=== PATIENT | female | born 1945 | race Caucasian/White ===

== ENCOUNTER 2016-10-15 21:09 | Emergency (ER) | payer OTHER ==
[2016-10-15 21:19] VITALS: RESP 16; TEMP 98.8; O2SAT 94
--- NOTE | 2016-10-15 21:56 | EDPHY ---
H & P Time Seen by Provider: 10/15/16 21:29 HPI/ROS: This patient was stepping backward at her daughter's home this evening when she caught her heel and hand mechanical fall onto outstretched left hand with wrist injury at 8:00 p.m.. She reports moderate pain to the region of the distal radius and took 1 Aleve prior to arrival with partial relief down to 2/3 ache at baseline slightly worse with movement of her wrist. No other exacerbating factors and she denies any other associated injuries except for mild pain at the coccyx. She relates that she had antecedent pain at the coccyx from fall while roller skating 2 weeks ago that had nearly resolved was at minimal discomfort is now back to moderate discomfort. ROS: Constitutional: She felt well prior to this mechanical fall today. No constitutional symptoms HEENT: She did not strike her head. No HEENT complaints Musculoskeletal: No neck or back pain other than the coccyx as per HPI. No other extremity injuries Neuro: No numbness tingling or weakness. No headache. Integumentary: No lacerations or abrasions 7 point ROS is otherwise negative. Smoking Status: Never smoked Physical Exam: Physical Exam Vital signs are normal. General: No acute distress HEENT: Atraumatic. Eyes: Pupils equal and react to light. Extraocular motions are intact. Cardiac: Brisk capillary refill is intact throughout. Pulses are 2+ and symmetric in the affected extremity. Skin: No rash or pallor. Extremities: Atraumatic normal except for left wrist Left wrist: Patient has mild tenderness to the distal radius. No significant swelling at this point. No ulnar styloid tenderness. No volar tenderness. No hand swelling or tenderness. She has mild limitation range of motion in extension and flexion due to pain. Neuro: Alert and oriented x3 with no sensorimotor deficits in the affected extremity. Back: Patient has mild tenderness at the coccyx without significant swelling or ecchymosis she can sit without difficulty and demonstrates this but bouncing up and down a bit without significant pain Initial differential diagnosis: Wrist fracture versus sprain, coccyx contusion , doubt coccyx fracture Constitutional: Initial Vital Signs Temperature (C) 37.1 C 10/15/16 21:14 Heart Rate 77 10/15/16 21:14 Respiratory Rate 16 10/15/16 21:14 Blood Pressure 141/70 H 10/15/16 21:14 O2 Sat (%) 94 10/15/16 21:14 O2 Delivery Mode Room Air Allergies/Adverse Reactions: amoxicillin Allergy (Verified 10/15/16 21:19) celecoxib [From Celebrex] Allergy (Verified 10/15/16 21:19) Home Medications: Medication Instructions Recorded Atorvastatin Calcium 10/15/16 Calcium + D Soft Chewable Tab 10/15/16 Clorazepate Dipotassium 10/15/16 Escitalopram Oxalate 10/15/16 Levothyroxine 10/15/16 MAGNESIUM 10/15/16 Metamucil Fiber Singles Packet 10/15/16 Multi-Day Vitamins 10/15/16 Vitamin B-6 10/15/16 MDM/Departure - MDM Diagnostics: Wrist x-ray: Minimally displaced distal radius fracture with intra-articular component by my interpretation Imaging: I viewed and interpreted images myself ED Course/Re-evaluation: Ortho Glass splint applied by our tech with my supervision. Patient neurovascularly intact post splint application Counseled patient regarding her distal radius fracture. Discussion: Distal radius fracture that appears nonsurgical by my interpretation without significant step-off in the intra-articular component. No associated complications. Given patient's minimal coccyx symptoms I advised against radiographs this time the patient is comfortable with this plan. - Depart Disposition: Home, Routine, Self-Care Clinical Impression: Distal radius fracture, left Qualifiers: Encounter type: initial encounter Fracture type: closed Fracture morphology: other intra-articular Qualified Code(s): S52.572A - Other intraarticular fracture of lower end of left radius, initial encounter for closed fracture Coccyx contusion Qualifiers: Encounter type: initial encounter Qualified Code(s): S30.0XXA - Contusion of lower back and pelvis, initial encounter Condition: Good Instructions: Wrist Fracture in Adults (ED) Additional Instructions: Diagnosis: Distal radius fracture left wrist 2. Coccyx contusion Plan: Keep the splint on place at all times on your wrist. Elevate the wrist when you are able Continue Aleve and Tylenol for discomfort as needed Call orthopedic physician below on Monday when you return home and arrange for follow-up appointment sometime this week for recheck and casting. Bring a disc copy of the x-ray to that appointment. Return to the emergency department for unbearable pain, numbness or other concerns Referrals: NONE *PRIMARY CARE P,. [Primary Care Provider] - As per Instructions
[2016-10-15 22:06] VITALS: BP 138/86; PULSE 76
== END 2016-10-15 22:09 | disposition home or self-care (01) ==
LOC: CED 21:09
DX: S52.572A Other intraarticular fracture of lower end of left radius, initial encounter for closed fracture (principal); S30.0XXA Contusion of lower back and pelvis, initial encounter; W18.39XA Other fall on same level, initial encounter; Y92.009 Unspecified place in unspecified non-institutional (private) residence as the place of occurrence of the external cause
CPT/HCPCS: 73110; 99283; A4565